=== PATIENT | female | born 2000 | race Hispanic/Latino ===

== ENCOUNTER 2024-10-31 19:37 | Emergency (ER) | payer SELFPAY ==
[~2024-10-31] VITALS: Ht 162.6 cm; Wt 45.4 kg
--- NOTE | 2024-10-31 19:44 | NUR ---
PT GIVEN URINE CUP. STATES NOT ABLE TO VOID AT THIS TIME.
--- NOTE | 2024-10-31 20:02 | ERN ---
ED Note History of Present Illness Stated Complaint: C/O IRRITATION W/DRYNESS TO VAGINAL AREA Chief Complaint: Vaginal Problems/Bleeding Time Seen by MD: 19:39 Time Seen by Midlevel: 19:39 Dictation: The patient is a 24-year-old female with no past medical history who presents to the emergency department with complaints of vaginal dryness and irritation onset Wednesday. Patient reports white clumpy discharge . Denies any abdominal pain, nausea or vomiting. Allergies: Coded Allergies: No Known Allergies (Unverified Allergy, Unknown, 10/31/24) Home Meds Active Scripts Miconazole Nitrate (Monistat 3 Vag Supp) 200 Mg Supp, 200 MG VG DAILY for 3 Days, #3 SUPP Prov:TANA HOPE [employer] 10/31/24 Past Medical History Past Medical History: No Pertinent History Surgical History: None LMP: Oct 20, 2024 RN Note Reviewed/Agreed w/PFSH: Yes Review of System Dictation Constitutional: Negative for fever,chills, and weight loss Eyes: Negative for injury, pain,redness, and discharge ENT: Negative for injury,pain or swelling Cardiovascular: Negative for chest pain, palpitations, and edema Respiratory: Negative for shortness of breath, cough, and wheezing, Abdomen/GI: Negative for abdominal pain, nausea, vomiting, diarrhea, and constipation Back: Negative for injury and pain : Positive for vaginal pain MS/Extremity: Negative for injury and deformity Skin: Negative for rash, and discoloration Neuro: Negative for headache, weakness, numbness, tingling, and seizure Psych: Negative for suicide ideation, homicidal ideation, and hallucinations Initial Vital Sign VS Vital Signs Date Time Temp Pulse Resp B/P (MAP) Pulse Ox O2 Delivery O2 Flow Rate FiO2 10/31/24 19:39 98.1 79 20 116/79 99 Room Air Physical Exam Dictation Vital Signs reviewed General Appearance: Alert, oriented x 3, no acute distress, well developed, nourished. Head and Face: non-traumatic. Eyes: PERRL, pink conjunctivas, eyelid no trauma, anterior chamber with arcus senilis. Ears: Pinnas intact and no signs of trauma or erythema ear canals clear and no discharge TM no erythema Nose: No discharge, no bleeding. Oropharynx: Mouth normal, tongue pink. pharynx clear,no erythema, tonsils no exudates, no abscesses noted, mucous membrane moist Neck: Supple, non-tender, no thyromegaly, no masses, no JVD, no bruits Breast:Deferred Chest:No tenderness, no crepitus, no paradoxical movement, no retractions Lungs:Clear, well-ventilated, symmetric, no rales, no wheezing, no rhonchi, no stridor, good breath sounds bilaterally Heart: Regular rate, regular rhythm, no murmur, no gallops Vascular: no peripheral edema, Abdomen: Soft, positive bowel sounds, nondistended, no guarding, nontender, no rebound, no masses no hepatomegaly, no splenomegaly, no Montalvo's sign, no hernias. Rectal: Deferred Genital: Deferred Neurological: Normal speech, motor function intact, sensory function intact Musculoskeletal: Neck nontender, full range of motion, back nontender, full range of motion, Extremities: nontender, full range of motion Skin: Color pink, dry, no turgor, no rash, no lacerations, no abrasions, no contusions. Lymphatic: Deferred Results (Laboratory/Radiology) Laboratory/Radiology Laboratory Tests Test 10/31/24 20:11 Urine Color YELLOW (YELLOW) Urine Appearance CLOUDY (CLEAR) H Urine pH 6.0 (5.0-8.0) Urine Specific [place] 1.028 (1.001-1.031) Urine Protein 10 mg/dL (NEGATIVE) H Urine Glucose (UA) NEGATIVE mg/dL (NEGATIVE) Urine Ketones NEGATIVE mg/dL (NEGATIVE) Urine Occult Blood NEGATIVE (NEGATIVE) Urine Nitrate NEGATIVE (NEGATIVE) Urine Bilirubin NEGATIVE mg/dL (NEGATIVE) Urine Urobilinogen 3 mg/dL (0.2-1.0) H Urine Leukocyte Esterase 75 [place]rina/uL (NEGATIVE) H Urine RBC 6-10 /HPF (0-1) H Urine WBC 11-25 /HPF (0-1) H Urine Squamous Epithelial Cells MANY /HPF (0-2) Urine Bacteria FEW /HPF (None Seen) Urine HCG, Qualitative NEGATIVE (NEGATIVE) Labs Reviewed?: Yes ED Course ED Course Orders Procedure Category Date Status Time Urinalysis Profile LAB 10/31/24 Complete 19:57 ,Urine Test LAB 10/31/24 Complete 19:57 Culture Urine NATHANIEL 10/31/24 Logged 20:33 Vital Signs Date Time Temp Pulse Resp B/P (MAP) Pulse Ox O2 Delivery O2 Flow Rate FiO2 10/31/24 19:39 98.1 79 20 116/79 99 Room Air Medical Decision Making MDM The patient is a 24-year-old female with no past medical history who presents to the emergency department with complaints of vaginal dryness and irritation onset Wednesday. Patient reports white clumpy discharge . Denies any abdominal pain, nausea or vomiting. Patient with no wounds to pelvic area, symptoms consistent with vaginal candidiasis, we will treat patient .otherwise patient in no acute distress, n ontoxic appearance, stable vital signs. Differential diagnosis: UTI, vaginal candidiasis, excoriation Need for hospitalization: Patient does not meet criteria for hospitalization. There are no social concerns with this patient. DX & DISP Disposition: Discharge Departure Impression: Primary Impression: Vulvovaginal candidiasis Condition: Stable Scripts Miconazole Nitrate (Monistat 3 Vag Supp) 200 Mg Supp 200 MG VG DAILY for 3 Days, #3 SUPP Prov: TANA HOPE 10/31/24 Additional Instructions: Please follow with your OBGYN in 1-2 days. Take medications as prescribed. If something worsens please return to ER. FOLLOW-UP WITH PRIMARY CARE PROVIDER IN 1 TO 2 DAYS. TAKE MEDICATIONS DIRECTED HERE IN THE EMERGENCY ROOM. OKAY TO CONTINUE HOME MEDICATIONS UNLESS OTHERWISE DISCUSSED DURING YOUR VISIT IN THE EMERGENCY ROOM TODAY. RETURN TO YOUR NEAREST EMERGENCY ROOM IF SYMPTOMS WORSEN OR IF THERE IS NO IMPROVEMENT. CALL 911 IF YOU NEED IMMEDIATE ASSISTANCE. TAKE TYLENOL [id number] NEEDED AND IF NO CONTRAINDICATIONS ARE PRESENT. INCREASE ORAL HYDRATION. A WOUND CULTURE OR URINE CULTURE WAS ORDERED HERE IN THE EMERGENCY ROOM DEPARTMENT PLEASE FOLLOW-UP WITH PRIMARY CARE PROVIDER AND ADVISE THEM TO GET REPEAT PORTS FROM OUR FACILITY. IF YOU HAD ANY JOEY WRAP/SPLINTS THAT WERE APPLIED HERE, PLEASE DO NOT REMOVE THEM UNTIL YOU SEE YOUR PRIMARY CARE OR SPECIALTY. Referrals: JANETH BARRY MD (PCP) Time of Disposition: 21:51 I have reviewed the case, and I agree with, Diagnosis and Plan TANA HOPE Oct 31, 2024 20:02
[2024-10-31 20:26] LABS: APPEARANCE,URINE CLOUDY (CLEAR); GLUCOSE, URINE (UA) NEGATIVE (NEGATIVE); LEUKOCYTE ESTERASE ,URINE 75 Leu/uL (NEGATIVE); NITRATE,URINE NEGATIVE (NEGATIVE); OCCULT BLOOD,URINE NEGATIVE (NEGATIVE)
[2024-10-31 20:31] LABS: HCG,QUALITATIVE URINE NEGATIVE (NEGATIVE)
[2024-10-31 20:33] LABS: ADD UA MICROSCOPIC YES
[2024-10-31 20:36] LABS: SQUAMOUS EPITHELIAL CELL,UR MANY /HPF (0-2)
[2024-10-31] MEDS ORDERED: MICO200S VG (21:51)
[2024-10-31 22:09] VITALS: BP 121/71; PULSE 64; RESP 20; TEMP 98.4; O2SAT 99
== END 2024-10-31 22:15 | disposition home or self-care (01) ==
LOC: EDH 19:37
DX: B37.31 Acute candidiasis of vulva and vagina (principal); Z79.899 Other long term (current) drug therapy
CPT/HCPCS: 81001; 81025; 87086; 99283